=== PATIENT | female | born 1980 | race Caucasian/White ===

== ENCOUNTER 2016-12-03 03:07 | Inpatient (IN) | payer OTHER ==
[2016-12-03 04:23] LABS: Basophils % (Auto) 0.4 % (0.0-1.8); Eosinophils % (Auto) 0.5 % (0.0-4.3); Hematocrit 37.7 % (30.3-42.9); Hemoglobin 12.5 gm/dl (10.1-14.3); Mean Corpuscular HGB Conc 33 % (30-34); Mean Corpuscular Hemoglobin 29 pg (28-32); Mean Corpuscular Volume 89 fl (79-97); Platelet Count 214 K/mm3 (140-440); Red Blood Count 4.25 M/mm3 (3.65-5.03); Red Cell Distribution Width 14.5 % (13.2-15.2); White Blood Count 15.4 K/mm3 (4.5-11.0)
[2016-12-03 04:32] LABS: Anion Gap 16 mmol/L; BUN/Creatinine Ratio 21.25; Blood Urea Nitrogen 17 mg/dL (7-17); Calcium 9.1 mg/dL (8.4-10.2); Carbon Dioxide 28 mmol/L (22-30); Chloride 99.4 mmol/L (98-107); Glucose 92 mg/dL (65-100); Potassium 3.9 mmol/L (3.6-5.0); Sodium 139 mmol/L (137-145)
[2016-12-03] MEDS ORDERED: ZOFRAN IV ONE (11:09)
[2016-12-03] MEDS ORDERED: FIORICET PO ONE (11:09)
[2016-12-03] MEDS ORDERED: MORPHINE IV ONE (11:09)
--- NOTE | 2016-12-03 11:14 | Emergency Department Report ---
HPI - General Chief Complaint: Chest Pain Time Seen by Provider: 12/03/16 10:58 - HPI HPI: Room 25 The patient is a 36-year-old female presenting with a chief complaint of headache and chest pain. The patient states for 1 week she has had bifrontal headaches consistent with her migraines. The patient states pain is intermittent. Patient states BC powder alleviates the pain for approximately 15 -20 minutes but it returns. Patient denies any recent preceding trauma or fever. The patient has a history of seizures and states 2 days ago she had a seizure and afterwards she developed substernal chest pain. The patient describes chest pain as sharp, tight and pressure like in nature. The patient admits to shortness of breath, nausea/vomiting and diaphoresis with her chest pain. The patient currently gives her chest pain a score of 2/10 and her headache a score of 10/10. Patient states she has never had a stress test or cardiac catheterization Location: Head, chest Duration: [see above] Quality: Pain Severity: [see above] Modifying factors: [see above] Context: [see above] Mode of transportation: [not driving] ED Past Medical Hx - Past Medical History Previous Medical History?: Yes Hx Seizures: Yes Additional medical history: Fibromyalgia. Raynauds - Surgical History Past Surgical History?: Yes Additional Surgical History: C section x2. tubal ligation - Family History Family history: no significant - Social History Smoking Status: Never Smoker Substance Use Type: None (denies illicit drug use) - Medications Home Medications: Home Medications Medication Instructions Recorded Confirmed Last Taken Type Dilantin 300 mg PO HS 03/29/16 03/29/16 03/28/16 History Keppra TAB 500 mg PO BID 03/29/16 03/29/16 03/28/16 History ED Review of Systems ROS: Stated complaint: CHEST PAIN/EMESIS Other details as noted in HPI Comment: All other systems reviewed and negative Constitutional: diaphoresis. denies: fever Eyes: denies: eye pain, eye discharge, vision change ENT: denies: ear pain, throat pain Respiratory: shortness of breath Cardiovascular: chest pain Endocrine: no symptoms reported Gastrointestinal: nausea, vomiting, diarrhea Genitourinary: denies: urgency, dysuria, discharge Musculoskeletal: denies: back pain, joint swelling, arthralgia Skin: denies: rash, lesions Neurological: headache Psychiatric: denies: anxiety, depression Hematological/Lymphatic: denies: easy bleeding, easy bruising Physical Exam - Physical Exam Vital Signs: Vital Signs 12/03/16 03:17 Temperature 98.8 F Pulse Rate 80 Respiratory 18 Rate Blood Pressure 152/95 O2 Sat by Pulse 100 Oximetry Physical Exam: GENERAL: The patient is well-developed well-nourished female lying on stretcher not appearing to be in acute distress. [] HEENT: Normocephalic. Atraumatic. Extraocular motions are intact. Patient has moist mucous membranes. NECK: Supple. No meningitic signs are noted. Trachea midline CHEST/LUNGS: Clear to auscultation. There is no respiratory distress noted. HEART/CARDIOVASCULAR: Regular. There is no tachycardia. There is no gallop rub or murmur. ABDOMEN: Abdomen is soft, nontender. Patient has normal bowel sounds. There is no abdominal distention. SKIN: There is no rash. There is no edema. There is no diaphoresis. NEURO: The patient is awake, alert, and oriented. The patient is cooperative. The patient has no focal neurologic deficits. The patient has normal speech. Cranial nerves II through XII grossly intact, no drift MUSCULOSKELETAL: There is no evidence of acute injury. ED Course Vital Signs 12/03/16 03:17 Temperature 98.8 F Pulse Rate 80 Respiratory 18 Rate Blood Pressure 152/95 O2 Sat by Pulse 100 Oximetry ED Medical Decision Making - Lab Data Result diagrams: 12/03/16 04:00 12/03/16 04:00 Laboratory Tests 12/03/16 12/03/16 12/03/16 04:00 04:00 06:36 WBC 15.4 H RBC 4.25 Hgb 12.5 Hct 37.7 MCV 89 MCH 29 MCHC 33 RDW 14.5 Plt Count 214 Lymph % (Auto) 16.6 Calloway % (Auto) 7.3 Eos % (Auto) 0.5 Baso % (Auto) 0.4 Lymph # 2.6 Calloway # 1.1 H Eos # 0.1 Baso # 0.1 Seg Neutrophils % 75.2 H Seg Neutrophils # 11.6 H Sodium 139 Potassium 3.9 Chloride 99.4 Carbon Dioxide 28 Anion Gap 16 BUN 17 Creatinine 0.8 Estimated GFR > 60 BUN/Creatinine Ratio 21.25 Glucose 92 Calcium 9.1 Troponin T < 0.010 < 0.010 Urine HCG, Qual Phenytoin 12/03/16 12/03/16 12/03/16 09:22 11:56 Unknown WBC RBC Hgb Hct MCV MCH MCHC RDW Plt Count Lymph % (Auto) Calloway % (Auto) Eos % (Auto) Baso % (Auto) Lymph # Calloway # Eos # Baso # Seg Neutrophils % Seg Neutrophils # Sodium Potassium Chloride Carbon Dioxide Anion Gap BUN Creatinine Estimated GFR BUN/Creatinine Ratio Glucose Calcium Troponin T < 0.010 Urine HCG, Qual Negative Phenytoin 0.8 L - EKG Data -: EKG Interpreted by Me EKG shows normal: sinus rhythm Rate: normal - EKG Data When compared to previous EKG there are: previous EKG unavailable Interpretation: other (no ischemic changes seen) - Radiology Data Radiology results: report reviewed (CT head), image reviewed (CT head, chest x- ray) interpreted by me: Chest x-ray-no focal infiltrates, no pneumothorax CT head (read by radiologist)-cranial CT scan within normal limits. - Differential Diagnosis ACS, GERD, pericarditis, migraines, ICH Critical care attestation.: If time is entered above; I have spent that time in minutes in the direct care of this critically ill patient, excluding procedure time. ED Disposition Clinical Impression: Chest pain, Headache Disposition: OP ADMITTED IP TO THIS HOSP Is pt being admited?: Yes Does the pt Need Aspirin: Yes Condition: Fair Instructions: Chest Pain (ED) Referrals: PRIMARY CARE, [Primary Care Provider] - 3-5 Days Time of Disposition: 12:58 (hospitalist paged)
--- NOTE | 2016-12-03 12:07 | XRay Report ---
AP CHEST: HISTORY: chest pain AP view of the chest demonstrates a normal mediastinal and cardiac contour with clear lungs and normal bony and soft tissue structures. IMPRESSION: Unremarkable AP chest.
[2016-12-03] MEDS ORDERED: MORPHINE ONE (12:23)
--- NOTE | 2016-12-03 12:46 | Cat Scan Report ---
CT HEAD WITHOUT CONTRAST: HISTORY: Headache, nausea and vomiting. Serial contiguous axial images were obtained through the cranium. Intravenous contrast material was not administered. The ventricles are normal in size and appearance. There is no mass effect or midline shift. No areas of abnormally increased or decreased attenuation are seen. No mass lesion is seen. The mastoid air cells and visualized portions of the sinuses are normal. IMPRESSION: Cranial CT scan within normal limits.
[2016-12-03] MEDS ORDERED: NITRO-BID 2% TP ONE ×2 (12:58→14:37)
[2016-12-03] MEDS ORDERED: ASPIRIN PO ONE (12:58)
--- NOTE | 2016-12-03 13:47 | Admit Criteria Form ---
Admission Criteria Documentation: CARDIOLOGY GRG Clinical Indications for Admission to Inpatient Care ( Place 'X' for any and all applicable criteria): Hospital admission is needed for appropriate care of the patient because of ANY ONE of the following (1): [ ] I. Hemodynamic instability as indicated by ALL of the following (1)(2)(3) (4)(5) [ ]a) Vital signs or other findings not as expected for chronic patient condition or baseline [ ]b) Instability indicated by ANY ONE of the following: [ ]i) Hypotension [ ]ii) Symptomatic Tachycardia unresponsive to treatment ( e.g., analgesia, fluids, sedation as indicated) [ ]iii) Inadequate perfusion indicated by ANY ONE of the following: [ ] 1) Lactic acidosis (> 2 mmol/L) [ ] 2) New abnormal capillary refill (> 3 seconds) [ ] 3) Reduced urine output [ ] 4) New altered mental status [ ]iv) Orthostatic vital sign changes unresponsive to treatment (e.g., fluids) [ ]v) IV inotropic or vasopressor medication required to maintain adequate blood pressure or perfusion [ ] II. Severe heart failure as indicated by ANY ONE of the following(17)(18) [ ]a) Respiratory distress [ ]b) Hypotension [ ]c) Anasarca (refractory to outpatient therapy) [ ]d) Cardiac arrhythmias of immediate concern [ ]e) Myocardial ischemia [ ] III. Cardiac arrhythmias or findings of immediate concern indicated by ANY ONE of the following (19)(20): [ ] a) Heart rhythms that are inherently dangerous or unstable indicated by ANY ONE of the following (21)(22)(23): [ ] i) Resuscitated ventricular fibrillation or cardiac arrest [ ] ii) Ventricular escape rhythm [ ] iii) Sustained ventricular tachycardia (30 seconds or more of ventricular rhythm at greater than 100 beats per minute) [ ] iv) Nonsustained ventricular tachycardia and ANY ONE of the following: [ ] 1) Suspected cardiac ischemia as cause or consequence of ventricular tachycardia [ ] 2) In setting of acute myocarditis [ ] b) Unstable cardiac conduction defects indicated by ANY ONE of the following(23)(24)(25) [ ] i) Type II second-degree atrioventricular block [ ]ii) Third-degree atrioventricular block [ ]iii) New-onset left bundle branch block with suspected myocardial ischemia [ ]c) Any heart rhythm and ANY ONE of the following (21)(22)(26)(27) (28) [ ] i) Continuous long-term ECG monitoring needed (e.g., initiation of drug requiring monitoring for more than 24 hours) [ ] ii) Patient has automatic implanted cardioverter defibrillator that is repeatedly firing, malfunctioning, or in need of immediate adjustment of settings beyond the scope of ambulatory or observation care [ ]d) Heart rhythms of concern due to ANY ONE of the following: [ ] i) Hypotension [ ] ii) Respiratory distress [ ] iii) Association with other significant symptoms (e.g., bradycardia with syncope or ongoing dizziness, supraventricular tachycardia with chest pain (14)(15)(17) [ ] IV. Monitoring for cardiac contusion beyond the scope of observation care needed [A](30)(31)(32) [ ] V. Surgical or device complication (e.g., valve replacement complication , pacemaker dysfunction) (35)(41)(44)(45)(46) [ ] . Inpatient palliative care needed. [B](49) Also use Inpatient Palliative Care Criteria [ ] VII. Nonbacterial thrombotic (marantic) endocarditis (36)(43)(47)(48) [X] VIII. Cardiology condition, symptom, or finding for which emergency and observation care has failed or are not considered appropriate. [ ] IX. Acute valvular disease requiring inpatient as indicated by ANY ONE of the following (41) [ ]a) Acute valvular regurgitation (42) [ ]b) Noninfectious valvulitis (43) [ ]c) Obstructive valve thrombosis [ ]d) Paravalvular leak [ ]e) Other significant valvular disorder remaining after emergency or observation level of care (as appropriate) [ ]X. Pericardial disease requiring inpatient treatment as indicated by ANY ONE of the following (33)(34)(35)(36)(37) [ ]a) Suspected tamponade (38)(39)(40) [ ]b) Hemopericardium [ ]c) Other significant pericardial disorder remaining after emergency or observation level of care (as appropriate) [ ] XI. Cardiac ischemia beyond scope of emergency and observation care. [ ] XII. Hypertension requiring inpatient treatment as indicated by ANY ONE of the following (6)(7)(8) [ ]a) SBP greater than 220 mm Hg or DBP greater than 120 mmHg despite treatment [ ]b) SBP greater than 140 mm Hg or DBP greater than 100 mm Hg with evidence of acute end organ damage as indicated by ANY ONE of the following [ ] i) Altered mental status [ ] ii) Acute renal failure as indicated by new onset of ANY ONE of the following (9)(10)(11)(12)(13) [ ]1) 3-fold rise in serum creatinine from baseline [ ]2) Serum creatinine greater than 4 mg/dL ( 354 micromoles/L) with acute rise greater than 0.5 mg/dL (44.2 micromoles/L) [ ]3) Reduction of more than 75% in estimated glomerular filtration rate from baseline [ ]4) Estimated glomerular filtration rate less than 35 mL/min/1.73m2 (0.59 mL/sec/1.73m2) in child up to 18 years of age [ ]5) Cessation of urine output indicated by ALL of the following [ ]A. Adequate volume status [ ]B. Inadequate urine output as indicated by ANY ONE of the following [ ]a. Urine output less than 0.3 mL/kg/hr for 24 hours [ ]b. Anuria (urine output less than 0.1 mL/kg/hr) for 12 hours [ ] iii) Aortic dissection [ ] iv) Myocardial Ischemia [ ] v) Left ventricular heart failure [ ]vi) Retinal Hemorrhage [ ]vii) Other significant finding [ ]c) Hypertension in child requiring inpatient treatment as indicated by ALL of the following(14)(15)(16) [ ] i) Outpatient treatment not effective, not available, or not appropriate [ ]ii) SBP or DBP greater than 95th percentile for age [ ]iii) Evidence of acute end organ damage as indicated by ANY ONE of the following [ ]1) Altered mental status [ ]2) Acute renal failure as indicated by new onset of ANY ONE of the following(9)(10)(11)(12)(13) [ ]A. 3-fold rise in serum creatinine from baseline [ ]B. Serum creatinine greater than 4 mg/dL (354 micromoles/L) with acute rise greater than 0.5 mg/dL (44.2 micromoles/L) [ ]C. Reduction of more than 75% in estimated glomerular filtration rate from baseline [ ]D. Estimated glomerular filtration rate less than 35 mL/min/1.73m2 (0.59 mL/sec/1.73m2) in child up to 18 years of age [ ]E. Cessation of urine output indicated by ALL of the following [ ]a. Adequate volume status [ ]b. Inadequate urine output as indicated by ANY ONE of the following [ ]i) Urine output less than 0.3 mL/kg/hr for 24 hours [ ]ii) Anuria ( urine output less than 0.1 mL/kg/hr) for 12 hours [ ]3) Severe headache [ ]4) Visual disturbance [ ]5) Retinal hemorrhage [ ]6) Other significant finding [ ]XIII. Complications of transplanted heart indicated by ANY ONE of the following(61): [ ]a) Acute graft rejection requiring inpatient management (eg, intravenous immunosuppression)(62)(63) [ ]b) Acute graft heart failure indicated by ANY ONE of the following(64): [ ]i) Hemodynamic instability [ ]ii) Cardiac arrhythmias of immediate concern [ ]iii) Pulmonary edema that is very severe (eg, mechanical ventilation needed, imminent or likely, need for 100% oxygen to keep oxygen saturation above 90%) [ ]iv) Pulmonary edema that is persistent as indicated by ALL of the following: [ ]1) New need for oxygen therapy to keep oxygen saturation above 90% (or increased FiO2 need from baseline) [ ]2) Has not improved sufficiently with emergency department or observation care IV diuretics or other heart failure treatments[E] [ ]v) Altered mental status that is severe or persistent [ ]vi) Increased creatinine (new on laboratory test) with reduction of more than 50% in estimated glomerular filtration rate from baseline [ ]vii) Progressively (ongoing) rising creatinine (known from past laboratory test) with reduction of more than 25% in estimated glomerular filtration rate from baseline [ ]viii) Acute renal failure [ ]ix) Acute peripheral ischemia (eg, examination shows pulseless, cool, mottled, or cyanotic extremity) [ ]x) Pulmonary artery catheter monitoring needed [ ]xi) Other sign or symptom of heart failure requiring inpatient treatment (ie, too severe or not responsive to outpatient and observation care treatment) [ ]c) Infection requiring inpatient management (eg, Hemodynamic instability, need for intravenous antimicrobial treatment)(66)(67)(68)(69)(70) [ ]d) Cardiac allograft vasculopathy requiring inpatient management ( eg evidence of cardiac ischemia)(71) [ ]e) Other complication of transplanted heart (eg, stroke, severe pulmonary hypertension, severe valvular dysfunction) requiring inpatient management(72) The original [facility] content created by [facility] has been revised. The portions of the content which have been revised are identified through the use of italic text or in bold, and [facility] has neither reviewed nor approved the modified material. All other unmodified content is copyright [facility]. Please see references footnoted in the original [facility] edition 2016 Admission Criteria Met: Yes
[2016-12-03] MEDS ORDERED: SODIUM CHLORIDE FLUSH SYRINGE 10 ML IV PRN (14:17)
[2016-12-03] MEDS ORDERED: DULCOLAX PR PRN (14:17)
[2016-12-03] MEDS ORDERED: MILK OF MAGNESIA PO PRN (14:17)
[2016-12-03] MEDS ORDERED: TYLENOL PO PRN (14:17)
[2016-12-03] MEDS ORDERED: ZOFRAN IV PRN (14:17)
--- NOTE | 2016-12-03 14:31 | History and Physical Report ---
History of Present Illness Chief complaint: Headache History of present illness: Judith is a 36-year-old with a past medical history of migraine headaches and seizure disorder who presents with 1 week of migraine headaches. She notes that usually she takes either tramadol or Excedrin Migraine and is usually alleviate her symptoms, however in the past week they have not work she states that the headaches come on and they're frontal Flora photophobia and lasts anywhere from 15-20 minutes she gets some risk despite the pain as 7 out of 10 and then the pain comes back. She has had a really terrible week and she had to go to work despite having headaches. She notes that her friend of hers witnessed a seizure 2 days ago while she was in her sleep, she describes it as a friend saw her extremity shaking while she was asleep and was quite concerned. Also she's complaining of substernal chest pain 1 day, it is 2 out of 10 associated with shortness of breath nausea one episode of vomiting and diaphoresis. Past History Past Medical History: other (seizure disorder, fibromyalgia, renal distress disease, migraine headaches) Past Surgical History: Other ( section, tubal ligation) Social history: no significant social history Family history: no significant family history Medications and Allergies Allergies Allergy/AdvReac Type Severity Reaction Status Date / Time latex Allergy Rash Verified 07/05/15 11:06 Home Medications Medication Instructions Recorded Confirmed Last Taken Type Dilantin 300 mg PO HS 03/29/16 03/29/16 03/28/16 History Keppra TAB 500 mg PO BID 03/29/16 03/29/16 03/28/16 History Active Meds: Active Medications Acetaminophen (Tylenol) 650 mg PO Q4H PRN PRN Reason: Pain MILD(1-3)/Fever >100.5/YOUNG Acetaminophen/Butalbital/Caffeine (Fioricet) 2 tab PO Q4H PRN PRN Reason: Headache Amlodipine Besylate (Norvasc) 5 mg PO QDAY SHAWN Aspirin (Ecotrin) 325 mg PO QDAY SHAWN Bisacodyl (Dulcolax) 10 mg VA QDAY PRN PRN Reason: Constipation unrelieved by MOM Magnesium Hydroxide (Milk Of Magnesia) 30 ml PO Q4H PRN PRN Reason: Constipation Ondansetron HCl (Zofran) 4 mg IV Q8H PRN PRN Reason: N/V unrelieved by Reglan Sodium Chloride (Sodium Chloride Flush Syringe 10 Ml) 10 ml IV PRN PRN PRN Reason: LINE FLUSH Review of Systems All systems: negative (as stated in HPI) Exam - Constitutional Vitals: Temp Pulse Resp BP Pulse Ox 98.8 F 80 18 152/95 100 12/03/16 03:17 12/03/16 03:17 12/03/16 03:17 12/03/16 03:17 12/03/16 03:17 General appearance: Present: no acute distress, well-nourished - EENT Eyes: Present: PERRL ENT: hearing intact, clear oral mucosa - Neck Neck: Present: supple, normal ROM - Respiratory Respiratory effort: normal Respiratory: bilateral: CTA - Cardiovascular Heart Sounds: Present: S1 & S2. Absent: rub, click - Extremities Extremities: pulses symmetrical, No edema Peripheral Pulses: within normal limits - Abdominal General gastrointestinal: Present: soft, non-tender, non-distended, normal bowel sounds Female genitourinary: Present: normal - Integumentary Integumentary: Present: clear, warm, dry - Musculoskeletal Musculoskeletal: gait normal, strength equal bilaterally - Psychiatric Psychiatric: appropriate mood/affect, intact judgment & insight - Neurologic Neurologic: CNII-XII intact, moves all extremities Results - Labs CBC & Chem 7: 12/03/16 04:00 12/03/16 04:00 Labs: Laboratory Last Values WBC 15.4 K/mm3 (4.5-11.0) H 12/03/16 04:00 RBC 4.25 M/mm3 (3.65-5.03) 12/03/16 04:00 Hgb 12.5 gm/dl (10.1-14.3) 12/03/16 04:00 Hct 37.7 % (30.3-42.9) 12/03/16 04:00 MCV 89 fl (79-97) 12/03/16 04:00 MCH 29 pg (28-32) 12/03/16 04:00 MCHC 33 % (30-34) 12/03/16 04:00 RDW 14.5 % (13.2-15.2) 12/03/16 04:00 Plt Count 214 K/mm3 (140-440) 12/03/16 04:00 Lymph % (Auto) 16.6 % (13.4-35.0) 12/03/16 04:00 [place] % (Auto) 7.3 % (0.0-7.3) 12/03/16 04:00 Eos % (Auto) 0.5 % (0.0-4.3) 12/03/16 04:00 Baso % (Auto) 0.4 % (0.0-1.8) 12/03/16 04:00 Lymph # 2.6 K/mm3 (1.2-5.4) 12/03/16 04:00 [facility] [place] # 1.1 K/mm3 (0.0-0.8) H 12/03/16 04:00 Eos # 0.1 K/mm3 (0.0-0.4) 12/03/16 04:00 Baso # 0.1 K/mm3 (0.0-0.1) 12/03/16 04:00 Seg Neutrophils % 75.2 % (40.0-70.0) H 12/03/16 04:00 Seg Neutrophils # 11.6 K/mm3 (1.8-7.7) H 12/03/16 04:00 Sodium 139 mmol/L (137-145) 12/03/16 04:00 Potassium 3.9 mmol/L (3.6-5.0) 12/03/16 04:00 Chloride 99.4 mmol/L (98-107) 12/03/16 04:00 Carbon Dioxide 28 mmol/L (22-30) 12/03/16 04:00 Anion Gap 16 mmol/L 12/03/16 04:00 BUN 17 mg/dL (7-17) 12/03/16 04:00 Creatinine 0.8 mg/dL (0.7-1.2) 12/03/16 04:00 Estimated GFR > 60 ml/min 12/03/16 04:00 BUN/Creatinine Ratio 21.25 % 12/03/16 04:00 Glucose 92 mg/dL (65-100) 12/03/16 04:00 Calcium 9.1 mg/dL (8.4-10.2) 12/03/16 04:00 Troponin T < 0.010 ng/mL (0.00-0.029) 12/03/16 09:22 Urine HCG, Qual Negative (Negative) 12/03/16 11:56 Phenytoin 0.8 mg/L (10.0-20.0) L 12/03/16 Unknown - Imaging and Cardiology Chest x-ray: image reviewed (no acute abnormalities) CT Scan - head: image reviewed (no acute abnormalities) Assessment and Plan Assessment and plan: Judith is a 36-year-old woman with a past medical history of seizure disorder fibromyalgia, Raynaud's phenomena and migraine headaches. Who presented one week of uncontrolled migraine, one episode of seizure 2 days ago and chest pain 1 day 1. Uncontrolled migraines We'll put her on Fioricet, MRI brain, neurology consult 2. Uncontrolled seizures Continue home medications, EEG, MRI brain, neurology consult 3. Hypertension Put on a calcium channel bogdan as this also help alleviate her renal disease 4. Chest pain Serial troponins, stress test in the morning.
[2016-12-03] MEDS ORDERED: ASPIRIN ONE (14:37)
[2016-12-03] MEDS ORDERED: NORVASC ONE (14:38)
[2016-12-03] MEDS: NORVASC PO SCH (14:48)
--- NOTE | 2016-12-03 16:50 | Magnetic Resonance Report ---
MRI BRAIN WITHOUT CONTRAST INDICATION: Seizure, headache. COMPARISON: Head CT from earlier today. FINDINGS: Noncontrast multiplanar and multisequence MRI of the brain demonstrates normal ventricles and sulci without acute infarct, hemorrhage, mass effect or midline shift. No abnormal extra-axial masses or fluid collections. Normal major intracranial vascular flow voids. Normal posterior fossa structures with symmetric seventh and eighth nerve complexes. Symmetric, grossly unremarkable eye globes. Mild nasal septal deviation. Slight bilateral ethmoid and maxillary sinusitis. Clear remainder imaged paranasal sinuses and mastoid air cells. Slightly low-lying cerebellar tonsils extending for approximately 4-5 mm below the foramen magnum. Normal remainder midline appearance. 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 Please correlate. Thank you for the opportunity to participate in this patient's care.
[2016-12-03] MEDS: FIORICET PO PRN (17:42)
[2016-12-03 17:54] LABS: Creatine Kinase MB 1.1 ng/mL (0.0-4.0)
[2016-12-03] MEDS ORDERED: DILANTIN 300 MG PO SCH (22:00)
[2016-12-03] MEDS ORDERED: KEPPRA 500 MG PO SCH (22:00)
[2016-12-03] MEDS ORDERED: PERCOCET 5/325 PO ONE (22:35)
[2016-12-03] MEDS: KEPPRA PO SCH (22:38)
[2016-12-03] MEDS: DILANTIN PO SCH (22:38)
[2016-12-04] MEDS: FIORICET PO PRN (06:52)
[2016-12-04] MEDS: NITRO-BID 2% TP SCH ×2 (07:25→15:10)
[2016-12-04] MEDS: NORVASC PO SCH (10:09)
[2016-12-04] MEDS: ECOTRIN PO SCH (10:09)
[2016-12-04] MEDS: KEPPRA PO SCH ×2 (10:10→21:13)
[2016-12-04] MEDS ORDERED: MAGNESIUM SULFATE IV ONE (10:45)
--- NOTE | 2016-12-04 10:51 | Consultation ---
History of Present Illness Consult date: 12/04/16 Requesting physician: BETTY ALVARADO Reason for Consult: headache/seizure Chief complaint: headache, seizure History of present illness: 36 YO F p/w 10 days of holocranial YOUNG typical to prior migraines. Sx began on . Pain is worsened by activity and sounds/light and relieved by rest. There are no clear temporal factors. Severity is such to limit her ability to function comfortably. She reported breakthrough seizure during sleep on 12/02. She reported AED compliance. Past History Past Medical History: other (seizure disorder, fibromyalgia, renal distress disease, migraine headaches) Past Surgical History: Other ( section, tubal ligation) Social history: no significant social history, single, Lives alone, smoking. denies: alcohol abuse, prescription drug abuse, IV drug use Family history: no significant family history Medications and Allergies Allergies Allergy/AdvReac Type Severity Reaction Status Date / Time latex Allergy Rash Verified 07/05/15 11:06 Home Medications Medication Instructions Recorded Confirmed Last Taken Type Dilantin 300 mg PO HS 03/29/16 12/03/16 03/28/16 History Keppra TAB 500 mg PO BID 03/29/16 12/03/16 03/28/16 History Active Meds: Active Medications Acetaminophen (Tylenol) 650 mg PO Q4H PRN PRN Reason: Pain MILD(1-3)/Fever >100.5/YOUNG Acetaminophen/Butalbital/Caffeine (Fioricet) 2 tab PO Q4H PRN PRN Reason: Headache Last Admin: 12/04/16 06:52 Dose: 2 tab Amlodipine Besylate (Norvasc) 5 mg PO QDAY [facility] Last Admin: 12/04/16 10:09 Dose: 5 mg Aspirin (Ecotrin) 325 mg PO QDAY [facility] Last Admin: 12/04/16 10:09 Dose: 325 mg Bisacodyl (Dulcolax) 10 mg AR QDAY PRN PRN Reason: Constipation unrelieved by MOM Dexamethasone (Decadron) 4 mg IV Q12HR [facility] Stop: 12/06/16 22:01 Valproate Sodium 500 mg/ (Sodium Chloride) 105 mls @ 100 mls/hr IV Q8HR [facility] Stop: 12/05/16 07:02 Levetiracetam (Keppra) 500 mg PO BID [facility] Last Admin: 12/04/16 10:10 Dose: 500 mg Magnesium Hydroxide (Milk Of Magnesia) 30 ml PO Q4H PRN PRN Reason: Constipation Magnesium Sulfate (Magnesium Sulfate) 1 gm IV ONCE ONE Stop: 12/04/16 10:46 Nitroglycerin (Nitro-Bid 2%) 0.5 inch TP BIDNTG [facility] PRN Reason: Protocol Last Admin: 12/04/16 07:25 Dose: 0.5 inch Ondansetron HCl (Zofran) 4 mg IV Q8H PRN PRN Reason: N/V unrelieved by Reglan Phenytoin (Dilantin) 300 mg PO QHS [facility] Last Admin: 12/03/16 22:38 Dose: 300 mg Sodium Chloride (Sodium Chloride Flush Syringe 10 Ml) 10 ml IV PRN PRN PRN Reason: LINE FLUSH Review of Systems All systems: negative Constitutional: fatigue, chronic headaches, chronic pain Neurological: weakness, seizures, headaches, migraines, convulsions Physical Examination - Vital Signs Vital Signs: Vital Signs Temp Pulse Resp BP Pulse Ox 98.8 F 80 18 152/95 100 12/03/16 03:17 12/03/16 03:17 12/03/16 03:17 12/03/16 03:17 12/03/16 03:17 - Constitutional General appearance: uncomfortable, chronically ill - EENT EENT: Present: ATNC, PERRL, mucous membranes moist, hearing intact, vision intact - Respiratory Respiratory: Present: chest non-tender, normal breath sounds, no respiratory distress - Cardiovascular Cardiovascular: Present: regular rate Extremities: Present: no peripheral edema bilatateraly, no clubbing, cyanosis, no inflammation, no ischemia or petechiae - Gastrointestinal Gastrointestinal: Present: normoactive bowel sounds, non-distended - Integumentary Integumentary: Present: normal - Neurologic Cranial nerve examination: PERRL, EOMI, VFF, V1/V2/V3 grossly intact, face symmetric, tongue midline, intact, intact shoulder shrug, intact cough reflex, Intact Vestibulo-ocular r, intact corneal reflex, normal palatal elevation Speech examination: intact Sensorimotor examination: intact Detailed motor examination: full strength in all mary Motor examination - right side: 5/5: biceps, triceps, wrist flexion, wrist extension, associate chief nurse, hip flexors, knee extensors, dorsiflexion, toe extension (EHL) , plantarflexion Motor examination - left side: 02/13: biceps, triceps, wrist flexion, wrist extension, associate chief nurse, hip flexors, knee extensors, dorsiflexion, toe extension (EHL) , plantarflexion Detailed sensory examination: intact, light touch, temperature Reflex and gait examination: intact Reflexes: 2+: ankle, bicep, knee, tricep - Musculoskeletal Musculoskeletal: Present: no fluid collection, no pain, normal range of motion - Psychiatric Psychiatric: Present: mood/affect appropriate, cooperative Results - Laboratory Findings CBC and BMP: 12/03/16 04:00 12/03/16 04:00 Abnormal Lab Findings: Abnormal Labs 12/03/16 12/03/16 14:33 Unknown LDL Cholesterol Direct 39 L Phenytoin 0.8 L Assessment and Plan 36 YO F Hx fibromyalgia and migraine p/w 2 weeks of status migraine refractory to Excedrin and seizure disorder on LEV 500mg BID and PHT 300mg QHS w/ breakthrough event 12/02 overnight. She reports AED compliance by PHT level 0.8 would suggest otherwise. Neuro exam intact @ baseline. MRI Brain ? Chiari I. Plan and Recommendations: 1. Neuro checks w/ Sz precautions 2. Brain imaging: no further indicated 3. [facility] Protocol-Decadron 10mg IV x 1 and cont 4mg IV BID x 6 doses, VPA 500mg IV Q8hrs x 3 doses, Magnesium 1mg IV Q24hrs x 3 doses, 4. Analgesia PRN: Toradol 15-30mg IV Q4-6hrs prn and Fioricet 1-2 tabs Q4-6hrs prn 5. Cont home AED doses
[2016-12-04] MEDS: DECADRON IV SCH ×2 (11:56→21:30)
[2016-12-04] MEDS ORDERED: MAGNESIUM SULFATE 1 GM in NACL 0.9% 50 ML IV ONE ×2 (12:00→16:00)
[2016-12-04] MEDS: DepaCON 500 MG in NACL 0.9% 100 ML IV SCH ×2 (15:17→21:15)
[2016-12-04] MEDS ORDERED: FLUARIX QUAD 2016-2017(36 MOS+) IM ONE (15:24)
--- NOTE | 2016-12-04 18:06 | Progress Note ---
Assessment and Plan Assessment and Plan 1. Migraine headache: CT of head was normal, MRI showed sinusitis and borderline demetra 1 malformation without acute intracranial MRI abnormality. Presently on Fioricet, Neurology following. 2. Seizure do: Continue with antiepileptic meds. 3. HTN: Optimize control with BP meds. 4. Chest pain: Will follow up on stress test. Subjective Date of service: 12/04/16 Principal diagnosis: Migraine headache, Seizure Interval history: No overnight events Objective - Constitutional Vitals: Vital Signs - 12hr 12/04/16 12/04/16 12/04/16 07:25 08:00 09:14 Temperature 97.7 F Pulse Rate 60 Pulse Rate [ 74 Right Radial] Respiratory 20 Rate Blood Pressure 101/59 Blood Pressure 102/64 [Left Arm] Blood Pressure [Right Arm] O2 Sat by Pulse 99 96 Oximetry 12/04/16 12/04/16 12/04/16 10:09 11:07 12:25 Temperature 98.0 F Pulse Rate 10 L Pulse Rate [ 64 Right Radial] Respiratory 20 Rate Blood Pressure Blood Pressure [Left Arm] Blood Pressure 99/52 [Right Arm] O2 Sat by Pulse 95 97 Oximetry 12/04/16 15:10 Temperature Pulse Rate 84 Pulse Rate [ Right Radial] Respiratory Rate Blood Pressure Blood Pressure [Left Arm] Blood Pressure [Right Arm] O2 Sat by Pulse Oximetry General appearance: Present: no acute distress, well-nourished - EENT Eyes: PERRL, EOM intact ENT: hearing intact, clear oral mucosa Ears: bilateral: normal - Neck Neck: supple, normal ROM - Respiratory Respiratory effort: normal Respiratory: bilateral: CTA - Breasts Breasts: normal - Cardiovascular Rhythm: regular Heart Sounds: Present: S1 & S2. Absent: gallop, rub Extremities: pulses intact, No edema, normal color, Full ROM - Gastrointestinal General gastrointestinal: Present: soft, non-tender, non-distended, normal bowel sounds - Genitourinary Female genitourinary: normal - Integumentary Integumentary: clear, warm, dry - Musculoskeletal Musculoskeletal: 1, strength equal bilaterally - Neurologic Neurologic: moves all extremities - Psychiatric Psychiatric: memory intact, appropriate mood/affect, intact judgment & insight - Labs CBC & Chem 7: 12/03/16 04:00 12/03/16 04:00
[2016-12-04] MEDS: NORCO 5/325 PO PRN (18:49)
[2016-12-04] MEDS ORDERED: MORPHINE IV PRN (19:13)
[2016-12-04] MEDS: DILANTIN PO SCH (21:13)
[2016-12-05] MEDS: DepaCON 500 MG in NACL 0.9% 100 ML IV SCH (05:54)
[2016-12-05] MEDS: NITRO-BID 2% TP SCH ×2 (06:01→13:14)
[2016-12-05] MEDS ORDERED: LEXISCAN IV ONE ×2 (08:48→08:50)
[2016-12-05] MEDS: ECOTRIN PO SCH (10:15)
--- NOTE | 2016-12-05 11:33 | Progress Note ---
Assessment and Plan 36 YO F Hx fibromyalgia and migraine p/w 2 weeks of status migraine refractory to Excedrin and seizure disorder on LEV 500mg BID and PHT 300mg QHS w/ breakthrough event 12/02 overnight. She reports AED compliance by PHT level 0.8 would suggest otherwise. Neuro exam intact @ baseline. MRI Brain ? Chiari I. YOUNG improving 12/05. Plan and Recommendations: 1. Neuro checks w/ Sz precautions 2. Brain imaging: no further indicated 3. [facility] Protocol-Decadron 10mg IV x 1 and cont 4mg IV BID x 6 doses, VPA 500mg IV Q8hrs x 3 doses, Magnesium 1mg IV Q24hrs x 3 doses, 4. Analgesia PRN: Toradol 15-30mg IV Q4-6hrs prn and Fioricet 1-2 tabs Q4-6hrs prn 5. Cont home AED doses 6. We can revisit as needed. If pt continues to improve during hospitalization, she can likely be D/C over weekend w/ outpt follow up. Subjective Date of service: 12/05/16 Principal diagnosis: Migraine headache, Seizure Interval history: YOUNG improving Objective - Vital Sign Vital Signs - 12hr 12/05/16 12/05/16 12/05/16 00:35 03:00 05:20 Temperature 98.4 F 97.9 F Pulse Rate 82 Pulse Rate [ 88 88 Left Dorsalis Pedis] Respiratory 20 20 Rate Blood Pressure 109/66 113/59 [Right Arm] O2 Sat by Pulse 99 97 Oximetry - General Apperance Constitutional: comfortable - EENT EENT: ATNC, PERRL, mucous membranes moist, hearing intact, vision intact - Respiratory Respiratory: chest non-tender, normal breath sounds, no respiratory distress - Cardiovascular Cardiovascular: regular rate Extremities: no peripheral edema bilat, no clubbing, cyanosis, no inflammation, no ischemia or petechiae - Gastrointestinal Gastrointestinal: normoactive bowel sounds, non-distended - Integumentary Integumentary: normal - Neurologic Cranial nerve examination: PERRL, EOMI, VFF, V1/V2/V3 grossly intact, face symmetric, tongue midline, intact, intact shoulder shrug, intact cough reflex, Intact Vestibulo-ocular r, intact corneal reflex, normal palatal elevation Speech examination: intact Detailed motor examination: full strength in all mary Motor examination - right side: 5/5: biceps, triceps, wrist flexion, wrist extension, patient assessment coordinator, hip flexors, knee extensors, dorsiflexion, toe extension (EHL) , plantarflexion Motor examination - left side: 02/13: biceps, triceps, wrist flexion, wrist extension, patient assessment coordinator, hip flexors, knee extensors, dorsiflexion, toe extension (EHL) , plantarflexion Detailed sensory examination: intact, light touch Reflex and gait examination: intact Reflexes: 2+: ankle, bicep, knee, tricep - Musculoskeletal Musculoskeletal: no fluid collection, no pain, normal range of motion - Psychiatric Psychiatric: mood/affect appropriate - Laboratory Findings CBC and BMP: 12/03/16 04:00 12/03/16 04:00 Abnormal Lab Findings: Abnormal Labs 12/03/16 12/03/16 14:33 Unknown LDL Cholesterol Direct 39 L Phenytoin 0.8 L
[2016-12-05] MEDS: NORVASC PO SCH (13:14)
[2016-12-05] MEDS: KEPPRA PO SCH ×2 (13:14→22:32)
[2016-12-05] MEDS: DECADRON IV SCH ×2 (13:15→22:34)
--- NOTE | 2016-12-05 15:46 | Progress Note ---
Assessment and Plan Assessment and plan: 36 YO F Hx fibromyalgia and migraine p/w 2 weeks of status migraine refractory to Excedrin and seizure disorder on LEV 500mg BID and PHT 300mg QHS w/ breakthrough event 12/02 overnight. She reports AED compliance by PHT level 0.8 would suggest otherwise. Neuro exam intact @ baseline. MRI Brain ? Chiari I. YOUNG improving 12/05. 1. Migraine headache: CT of head was normal, MRI showed sinusitis and borderline demetra 1 malformation without acute intracranial MRI abnormality. Presently on Fioricet, Neurology following. Cognitive neurologist will continue on Decadron on the [facility] protocol-Decadron 10mg IV x 1 and cont 4mg IV BID x 6 doses, VPA 500mg IV Q8hrs x 3 doses, Magnesium 1mg IV Q24hrs x 3 doses, 2. Seizure do: Continue with antiepileptic meds. 3. HTN: Optimize control with BP meds. 4. Chest pain: Stress test done this morning and was negative Pain is reproducible. Likely musculoskeletal 5. DVT and GI prophylaxis 6. Plan of care discussed with the patient detail and anticipate discharge in a.m. History Interval history: Patient seen and examined this morning in no acute distress, still drowsy but also complaining of pain. Denies any chest pain, nausea, vomiting, diarrhea No fever noted blood pressure controlled No adverse events reported to me by nursing staff Hospitalist Physical - Physical exam Narrative exam: VITAL SIGNS: Reviewed. GENERAL: The patient appeared well nourished and normally developed. Vital signs as documented. HEAD: No signs of head trauma. EYES: Pupils are equal. Extraocular motions intact. EARS: Hearing grossly intact. MOUTH: Oropharynx is normal. NECK: No adenopathy, no JVD. CHEST: Chest with clear breath sounds bilaterally. No wheezes, rales, or rhonchi. CARDIAC: Regular rate and rhythm. S1 and S2, without murmurs, gallops, or rubs. VASCULAR: No Edema. Peripheral pulses normal and equal in all extremities. ABDOMEN: Soft, without detectable tenderness. No sign of distention. No rebound or guarding, and no masses palpated. Bowel Sounds normal. MUSCULOSKELETAL: Good range of motion of all major joints. Extremities without clubbing, cyanosis or edema. NEUROLOGIC EXAM: Alert and oriented x 3. No focal sensory or strength deficits. Speech normal. Follows commands. PSYCHIATRIC: Mood normal. SKIN: No rash or lesions. - Constitutional Vitals: Temp Pulse Resp BP Pulse Ox 97.4 F L 75 18 111/67 100 12/05/16 12:00 12/05/16 13:14 12/05/16 12:00 12/05/16 13:14 12/05/16 12:00 General appearance: Present: no acute distress, well-nourished Results - Labs CBC & Chem 7: 12/03/16 04:00 12/03/16 04:00 Labs: Laboratory Last Values WBC 15.4 K/mm3 (4.5-11.0) H 12/03/16 04:00 RBC 4.25 M/mm3 (3.65-5.03) 12/03/16 04:00 Hgb 12.5 gm/dl (10.1-14.3) 12/03/16 04:00 Hct 37.7 % (30.3-42.9) 12/03/16 04:00 MCV 89 fl (79-97) 12/03/16 04:00 MCH 29 pg (28-32) 12/03/16 04:00 MCHC 33 % (30-34) 12/03/16 04:00 RDW 14.5 % (13.2-15.2) 12/03/16 04:00 Plt Count 214 K/mm3 (140-440) 12/03/16 04:00 Lymph % (Auto) 16.6 % (13.4-35.0) 12/03/16 04:00 Turner % (Auto) 7.3 % (0.0-7.3) 12/03/16 04:00 Eos % (Auto) 0.5 % (0.0-4.3) 12/03/16 04:00 Baso % (Auto) 0.4 % (0.0-1.8) 12/03/16 04:00 Lymph # 2.6 K/mm3 (1.2-5.4) 12/03/16 04:00 Turner # 1.1 K/mm3 (0.0-0.8) H 12/03/16 04:00 Eos # 0.1 K/mm3 (0.0-0.4) 12/03/16 04:00 Baso # 0.1 K/mm3 (0.0-0.1) 12/03/16 04:00 Seg Neutrophils % 75.2 % (40.0-70.0) H 12/03/16 04:00 Seg Neutrophils # 11.6 K/mm3 (1.8-7.7) H 12/03/16 04:00 Sodium 139 mmol/L (137-145) 12/03/16 04:00 Potassium 3.9 mmol/L (3.6-5.0) 12/03/16 04:00 Chloride 99.4 mmol/L (98-107) 12/03/16 04:00 Carbon Dioxide 28 mmol/L (22-30) 12/03/16 04:00 Anion Gap 16 mmol/L 12/03/16 04:00 BUN 17 mg/dL (7-17) 12/03/16 04:00 Creatinine 0.8 mg/dL (0.7-1.2) 12/03/16 04:00 Estimated GFR > 60 ml/min 12/03/16 04:00 BUN/Creatinine Ratio 21.25 % 12/03/16 04:00 Glucose 92 mg/dL (65-100) 12/03/16 04:00 Calcium 9.1 mg/dL (8.4-10.2) 12/03/16 04:00 Total Creatine Kinase 72 units/L (30-135) 12/03/16 17:18 CK-MB (CK-2) 1.1 ng/mL (0.0-4.0) 12/03/16 17:18 CK-MB (CK-2) Rel Index 1.5 (0-4) 12/03/16 17:18 Troponin T < 0.010 ng/mL (0.00-0.029) 12/05/16 05:45 Triglycerides 75 mg/dL (2-149) 12/03/16 14:33 Cholesterol 110 mg/dL (50-199) 12/03/16 14:33 LDL Cholesterol Direct 39 mg/dL (50-130) L 12/03/16 14:33 HDL Cholesterol 56 mg/dL (40-59) 12/03/16 14:33 Cholesterol/HDL Ratio 1.96 % 12/03/16 14:33 Urine HCG, Qual Negative (Negative) 12/03/16 11:56 Phenytoin 0.8 mg/L (10.0-20.0) L 12/03/16 Unknown
[2016-12-05] MEDS: FIORICET PO PRN (20:08)
--- NOTE | 2016-12-05 22:23 | Treadmill Report ---
ORDERING PHYSICIAN: Nita Neely MD INDICATION FOR PROCEDURE: Chest pain. FINDINGS: There is no scintigraphic evidence of myocardial ischemia. The left ventricle is normal in size and systolic function. The left ventricular ejection fraction is measured at 68%. Normal wall motion and wall thickening is noted on gated imaging. CONCLUSION: This is a normal perfusion scan. JOB# [id number] FREDY/CHELSEA
[2016-12-05] MEDS: DILANTIN PO SCH (22:32)
[2016-12-05] MEDS: NORCO 5/325 PO PRN (22:33)
[2016-12-06] MEDS: FIORICET PO PRN ×2 (06:45→10:44)
[2016-12-06] MEDS: NITRO-BID 2% TP SCH ×2 (06:46→14:28)
[2016-12-06] MEDS: ECOTRIN PO SCH (10:30)
[2016-12-06] MEDS: NORVASC PO SCH (10:31)
[2016-12-06] MEDS: KEPPRA PO SCH (10:31)
[2016-12-06] MEDS: DECADRON IV SCH (10:31)
--- NOTE | 2016-12-06 16:23 | Discharge Summary ---
Providers - Providers Date of Admission: 12/03/16 13:34 Attending physician: BETTY ALVARADO MD 12/03/16 Consult to Cardiac Rehabilitation [CONS] Routine Reason For Exam: Phase I 12/03/16 14:20 Consult to Physician [CONS] Routine Consulting Provider: RILEY CONWAY Reason For Exam: seizure and migraine Place consult to:: Dr. Conway Notified:: Yohana LIVINGSTON Phone number called:: [phone] Was contact made?: Yes If yes, spoke with:: Voicemail with consult info left for Flavia [place] Time called:: 18:25 Primary care physician: [employer] Hospitalization Condition: Fair Hospital course: 36 YO F Hx fibromyalgia and migraine p/w 2 weeks of status migraine refractory to Excedrin and seizure disorder on LEV 500mg BID and PHT 300mg QHS w/ breakthrough event 12/02 overnight. She reports AED compliance by PHT level 0.8 would suggest otherwise. Neuro exam intact @ baseline. MRI Brain ? Chiari I. YOUNG improving 12/05. 1. Migraine headache: CT of head was normal, MRI showed sinusitis and borderline demetra 1 malformation without acute intracranial MRI abnormality. Presently on Fioricet, Neurology following. Cognitive neurologist will continue on Decadron on the [facility] protocol-Decadron 10mg IV x 1 and cont 4mg IV BID x 6 doses, VPA 500mg IV Q8hrs x 3 doses, Magnesium 1mg IV Q24hrs x 3 doses, 2. Seizure do: Continue with antiepileptic meds. 3. HTN: Optimize control with BP meds. 4. Chest pain: Stress test done this morning and was negative Pain is reproducible. Likely musculoskeletal 5. DVT and GI prophylaxis 6. Plan of care discussed with the patient detail and anticipate discharge in a.m. Disposition: DISCHARGED TO HOME OR SELFCARE Time spent for discharge: 35 minutes Core Measure Documentation - Palliative Care Palliative Care/ Comfort Measures: Not Applicable - Core Measures Any of the following diagnoses?: none Exam - Constitutional Vitals: Temp Pulse Resp BP Pulse Ox 97.3 F L 83 18 126/72 98 12/06/16 12:00 12/06/16 12:00 12/06/16 12:00 12/06/16 12:00 12/06/16 12:00 General appearance: Present: no acute distress, well-nourished - EENT Eyes: Present: PERRL ENT: hearing intact, clear oral mucosa - Neck Neck: Present: supple, normal ROM - Respiratory Respiratory effort: normal Respiratory: bilateral: CTA - Cardiovascular Heart Sounds: Present: S1 & S2. Absent: rub, click - Extremities Extremities: pulses symmetrical, No edema Peripheral Pulses: within normal limits - Abdominal General gastrointestinal: Present: soft, non-tender, non-distended, normal bowel sounds Female genitourinary: Present: normal - Integumentary Integumentary: Present: clear, warm, dry - Musculoskeletal Musculoskeletal: gait normal, strength equal bilaterally - Psychiatric Psychiatric: appropriate mood/affect, intact judgment & insight - Neurologic Neurologic: CNII-XII intact, moves all extremities Plan Follow up with: PRIMARY CARE, [Primary Care Provider] - 3-5 Days Forms: Work/School Release Form Prescriptions: amLODIPine [Norvasc] 5 mg PO QDAY #30 tablet Butalb/Acetamin/Caff 50-325-40 [Fioricet] 2 tab PO Q4H PRN #60 tablet PRN Reason: Headache Dexamethasone [Decadron] 2 mg PO BID #10 tablet HYDROcodone/APAP 5-325 [[place] 5-325 mg TAB] 1 each PO Q6H PRN #30 tablet PRN Reason: Pain, Moderate (4-6)
[2016-12-06 17:43] VITALS: BP 113/69
== END 2016-12-06 19:37 | disposition home or self-care (01) | DRG 101 ==
LOC: ED 03:07 → 4A 13:34
PROVIDERS: ADMIT Internal Medicine; ATTEND Internal Medicine
DX: G40.909 Epilepsy, unspecified, not intractable, without status epilepticus (principal); G43.919 Migraine, unspecified, intractable, without status migrainosus; I10 Essential (primary) hypertension; G44.89 Other headache syndrome; R07.9 Chest pain, unspecified; Z98.51 Tubal ligation status; Z91.040 Latex allergy status
CPT/HCPCS: 36415; 70450; 70551; 71010; 78452; 80048; 80061; 80185; 81025; 82550; 82553; 84484; 85025; 90686; 93005; 93010; 93017; 94760; 96374; 96375; A9502; J1100; J2270; J2405; J2785; J3475

== ENCOUNTER 2017-01-10 14:30 | Emergency (ER) | payer SELFPAY ==
[2017-01-10 16:00] LABS: Anion Gap 14 mmol/L; BUN/Creatinine Ratio 27.14; Blood Urea Nitrogen 19 mg/dL (7-17); Calcium 8.6 mg/dL (8.4-10.2); Carbon Dioxide 23 mmol/L (22-30); Chloride 106.5 mmol/L (98-107); Eosinophils % (Auto) 1.3 % (0.0-4.3); Glucose 75 mg/dL (65-100); Hematocrit 39.3 % (30.3-42.9); Hemoglobin 13.3 gm/dl (10.1-14.3); Mean Corpuscular HGB Conc 34 % (30-34); Mean Corpuscular Hemoglobin 30 pg (28-32); Mean Corpuscular Volume 88 fl (79-97); Platelet Count 219 K/mm3 (140-440); Potassium 3.8 mmol/L (3.6-5.0); Red Blood Count 4.46 M/mm3 (3.65-5.03); Sodium 140 mmol/L (137-145); White Blood Count 7.2 K/mm3 (4.5-11.0)
[2017-01-10] MEDS ORDERED: TORADOL IV ONE (20:34)
[2017-01-10] MEDS ORDERED: NACL 0.9% 1000 ML 1,000 ML IV ONE (20:34)
[2017-01-10] MEDS ORDERED: MORPHINE IV ONE (20:34)
--- NOTE | 2017-01-10 20:38 | Emergency Department Report ---
ED Chest Pain HPI - General Chief Complaint: Chest Pain Stated Complaint: SOB/CHEST PAIN/HBP/INSOMNIA Time Seen by Provider: 01/10/17 20:07 Source: patient Mode of arrival: Ambulatory Limitations: No Limitations - History of Present Illness Initial Comments: This is a 36-year-old female who was dropped off to be seen today with a complaint of chest pain, shortness of breath and some nonspecific dizziness. The patient says that the discomfort is midsternal and does not radiate and it is reproducible to palpation. She denies any cough, back pain, fever, nausea, vomiting or diaphoresis. He says that the symptoms been going on for the past month but recently worsened over the past few days. The patient was here for the same set of symptoms a few weeks ago and was diagnosed with costochondritis and discharged home with hydrocodone, Fioricet, and the patient says that she's been taking these medications as well as some Advil and intermittent ice/heat without much relief. The pain seems to worsen with respirations. No recent travel or sick contacts at home. She does not have a primary care doctor. She denies tobacco or illicit drug use or abuse. She has a past medical history of fibromyalgia, renal it's, seizures and has a surgical history of 2 and tubal ligation. - Related Data Home Medications Medication Instructions Recorded Confirmed Last Taken Dilantin 300 mg PO HS 03/29/16 12/03/16 03/28/16 Keppra TAB 500 mg PO BID 03/29/16 12/03/16 03/28/16 Previous Rx's Medication Instructions Recorded Last Taken Type Butalb/Acetamin/Caff 50-325-40 2 tab PO Q4H PRN #60 tablet 12/06/16 Unknown Rx [Fioricet] Dexamethasone [Decadron] 2 mg PO BID #10 tablet 12/06/16 Unknown Rx HYDROcodone/APAP 5-325 [[place] 1 each PO Q6H PRN #30 tablet 12/06/16 Unknown Rx 5-325 mg TAB] amLODIPine [Norvasc] 5 mg PO QDAY #30 tablet 12/06/16 Unknown Rx Allergies Allergy/AdvReac Type Severity Reaction Status Date / Time latex Allergy Rash Verified 07/05/15 11:06 STEPHAN score - Stephan Score Age > 65: (0) No Aspirin use within the Past 7 Days: (0) No 3 or more CAD Risk Factors: (0) No 2 or more Angina events in past 24 hrs: (1) Yes Known CAD with more than 50% Stenosis: (0) No Elevated Cardiac Markers: (0) No ST Deviation Greater than 0.5mm: (0) No STEPHAN Score: 1 ED Review of Systems ROS: Stated complaint: SOB/CHEST PAIN/HBP/INSOMNIA Other details as noted in HPI Comment: All other systems reviewed and negative Constitutional: denies: chills, fever Eyes: denies: eye pain, eye discharge, vision change ENT: denies: ear pain, throat pain Respiratory: shortness of breath. denies: cough Cardiovascular: chest pain. denies: edema Gastrointestinal: denies: abdominal pain, nausea, diarrhea Genitourinary: denies: urgency, dysuria, discharge Musculoskeletal: denies: back pain, arthralgia Skin: denies: rash, lesions Neurological: other (dizzy). denies: headache, weakness, paresthesias ED Past Medical Hx - Past Medical History Previous Medical History?: Yes Hx Hypertension: Yes Hx Seizures: Yes Additional medical history: Fibromyalgia. Raynauds. Costocondritis - Surgical History Past Surgical History?: Yes Additional Surgical History: C section x2. tubal ligation - Social History Smoking Status: Never Smoker Substance Use Type: None - Medications Home Medications: Home Medications Medication Instructions Recorded Confirmed Last Taken Type Dilantin 300 mg PO HS 03/29/16 12/03/16 03/28/16 History Keppra TAB 500 mg PO BID 03/29/16 12/03/16 03/28/16 History Butalb/Acetamin/Caff 50-325-40 2 tab PO Q4H PRN #60 tablet 12/06/16 Unknown Rx [Fioricet] Dexamethasone [Decadron] 2 mg PO BID #10 tablet 12/06/16 Unknown Rx HYDROcodone/APAP 5-325 [[place] 1 each PO Q6H PRN #30 tablet 12/06/16 Unknown Rx 5-325 mg TAB] amLODIPine [Norvasc] 5 mg PO QDAY #30 tablet 12/06/16 Unknown Rx ED Physical Exam - General Limitations: No Limitations - Other Other exam information: GENERAL: The patient is well-developed well-nourished. HEENT: Normocephalic. Atraumatic. Extraocular motions are intact. Patient has moist mucous membranes. Pupils equal reactive to light bilaterally. NECK: Supple. Trachea is midline. CHEST/LUNGS: Clear to auscultation. There is no respiratory distress noted. Patient's chest pain is reproducible to palpation to the chest wall. HEART/CARDIOVASCULAR: Regular. There is no tachycardia. There is no gallop rub or murmur. ABDOMEN: Abdomen is soft, nontender. Patient has normal bowel sounds. There is no abdominal distention. SKIN: Skin is warm and dry. No edema. NEURO: The patient is awake, alert, and oriented. The patient is cooperative. The patient has no focal neurologic deficits. The patient has normal speech. MUSCULOSKELETAL: There is no tenderness or deformity. There is no limitation range of motion. There is no evidence of acute injury. Cap refill less than 2 seconds. Radial pulses +2 over 4 bilaterally. ED Course Vital Signs 01/10/17 14:39 Temperature 98.1 F Pulse Rate 95 H Respiratory 20 Rate Blood Pressure 127/89 O2 Sat by Pulse 100 Oximetry ED Medical Decision Making - Lab Data Result diagrams: 01/10/17 15:30 01/10/17 15:30 - EKG Data -: EKG Interpreted by Me EKG shows normal: sinus rhythm, axis, intervals, QRS complexes, ST-T waves Rate: normal - EKG Data When compared to previous EKG there are: previous EKG unavailable Interpretation: normal EKG - Radiology Data Radiology results: image reviewed interpreted by me: Chest x-ray did not show any acute process. Heart is normal shape and size. No effusions. No pneumothorax. No signs of pneumonia seen. - Medical Decision Making 36-year-old female presents the emergency department with acute on chronic generalized chest discomfort. The heart and lungs are normal to auscultation. Chest pain is reproducible palpation of chest wall. Patient's labs show negative troponins 3 and a negative d-dimer. EKG is normal without ST elevation MA, ischemia or dysrhythmia. Chest x-ray does not show any acute process. Patient was given some anti-inflammatory's and pain medication and upon reevaluation she is feeling better. Vital signs stable throughout her ED course. She has a STEPHAN score of 0-1. She is low on the heart score. Patient appears safe for discharge home at this time. Patient had a negative stress test last month. She'll be given a referral for that pathology technologist as well as referral to primary care. She will return to the ER with any worsening of her symptoms or any acute distress. - Differential Diagnosis MA, costochondritis, PE, fibromyalgia Critical Care Time: No Critical care attestation.: If time is entered above; I have spent that time in minutes in the direct care of this critically ill patient, excluding procedure time. ED Disposition Clinical Impression: Chest pain Qualifiers: Chest pain type: unspecified Qualified Code(s): R07.9 - Chest pain, unspecified Disposition: DISCHARGED TO HOME OR SELFCARE Is pt being admited?: No Condition: Stable Instructions: Chest Pain (ED), Costochondritis (ED) Additional Instructions: Please follow-up with primary care and cardiology. Return to the emergency department with any worsening of your symptoms or any acute distress. Referrals: PRIMARY MD JOSE CRUZ [Primary Care Provider] - 3-5 Days LUCIANA ALVARES MD [Staff Physician] - 3-5 Days WAN LIRIANO MD [Staff Physician] - 3-5 Days [facility] [Outside] - 3-5 Days Time of Disposition: 00:37
[2017-01-10] MEDS ORDERED: MORPHINE ONE (23:20)
[2017-01-10] MEDS ORDERED: TORADOL ONE (23:20)
[2017-01-11 01:27] VITALS: BP 128/77
--- NOTE | 2017-01-11 10:51 | XRay Report ---
Single view chest: Compared to 12/03/16. History: Chest pain. Findings: Normal cardiomediastinal silhouette. Trachea is midline. No consolidation, pneumothorax or pleural effusion. Impression: No acute cardiopulmonary findings.
== END 2017-01-11 01:24 | disposition home or self-care (01) ==
LOC: ED 14:30
DX: R07.9 Chest pain, unspecified (principal); I10 Essential (primary) hypertension; Z91.040 Latex allergy status
CPT/HCPCS: 36415; 71020; 80048; 84484; 85025; 85379; 93005; 93010; 96361; 96374; 96375; 99285; J1885; J2270; J7030

== ENCOUNTER 2018-02-08 17:36 | Emergency (ER) | payer SELFPAY ==
[2018-02-08 17:50] VITALS: BP 154/97
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
[2018-02-08] MEDS ORDERED: ULTRAM PO ONE (21:38)
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
[2018-02-09] MEDS ORDERED: THERMAZENE 50 GRAM TP ONE (00:33)
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
== END 2018-02-09 00:45 | disposition home or self-care (01) ==
LOC: ED 17:36
DX: T22.111A Burn of first degree of right forearm, initial encounter (principal); S16.1XXA Strain of muscle, fascia and tendon at neck level, initial encounter; R51 Headache; I10 Essential (primary) hypertension; Z91.040 Latex allergy status; V89.2XXA Person injured in unspecified motor-vehicle accident, traffic, initial encounter; Y93.89 Activity, other specified; Y92.89 Other specified places as the place of occurrence of the external cause; Y99.8 Other external cause status
CPT/HCPCS: 72040; 99284

== ENCOUNTER 2018-06-29 01:25 | Emergency (ER) | payer SELFPAY ==
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
[2018-06-29 02:51] LABS: Basophils # (Auto) 0.1 K/mm3 (0.0-0.1); Basophils % (Auto) 0.9 % (0.0-1.8); Eosinophils # (Auto) 0.1 K/mm3 (0.0-0.4); Eosinophils % (Auto) 1.2 % (0.0-4.3); Hematocrit 38.3 % (30.3-42.9); Hemoglobin 13.3 gm/dl (10.1-14.3); Lymphocytes # (Auto) 2.6 K/mm3 (1.2-5.4); Mean Corpuscular HGB Conc 35 % (30-34); Mean Corpuscular Hemoglobin 31 pg (28-32); Mean Corpuscular Volume 89 fl (79-97); Monocytes # (Auto) 0.7 K/mm3 (0.0-0.8); Monocytes % (Auto) 9.1 % (0.0-7.3); Platelet Count 203 K/mm3 (140-440); Red Blood Count 4.33 M/mm3 (3.65-5.03); Red Cell Distribution Width 13.2 % (13.2-15.2)
[2018-06-29 03:06] LABS: BUN/Creatinine Ratio 26; Blood Urea Nitrogen 18 mg/dL (7-17); Hemolysis Index 1
--- NOTE | 2018-06-29 03:41 | Cat Scan Report ---
FINAL REPORT EXAM: CT HEAD/BRAIN WO CON HISTORY: seizure, R tingling TECHNIQUE: Routine axial imaging was obtained of the brain without IV contrast. Comparison is made to the study of 12/03/2016. FINDINGS: The ventricular system is appropriate in size and is symmetric. There is no evidence of acute stroke or hemorrhage. The visualized sinuses are clear. The mastoid air cells are well pneumatized. The calvarium appears intact. IMPRESSION: Within normal limits.
[2018-06-29] MEDS ORDERED: DILANTIN 1,000 MG in NACL 0.9% 250ML 250 ML IV ONE (05:20)
[2018-06-29] MEDS ORDERED: NACL 0.9% 500 ML 500 ML ONE (06:03)
[2018-06-29] MEDS ORDERED: NACL 0.9% 500 ML 500 ML IV ONE (06:05)
[2018-06-29 06:08] VITALS: BP 130/85
[2018-06-29] MEDS ORDERED: ANTIVERT PO ONE (06:31)
== END 2018-06-29 07:09 | disposition home or self-care (01) ==
LOC: ED 01:25
DX: R56.9 Unspecified convulsions (principal); R42 Dizziness and giddiness; I10 Essential (primary) hypertension; M79.7 Fibromyalgia; Z91.040 Latex allergy status; Z86.73 Personal history of transient ischemic attack (TIA), and cerebral infarction without residual deficits; Z98.51 Tubal ligation status
CPT/HCPCS: 36415; 70450; 80048; 80185; 84703; 85025; 96361; 96365; 99284; J1165; J7040; J7050

== ENCOUNTER 2019-05-25 17:03 | Emergency (ER) | payer SELFPAY ==
--- NOTE | 2019-05-25 17:18 | Event Note ---
ED Screening Note Date of service: 05/25/19 Time: 17:14 ED Screening Note: This is a 38 y.o. F. that presents to the ER with numbness and tingling to RLE. Patient denies injury, recent travel. PMH of HTN, seizures, CVA Reports swelling to right lateral ankle. This initial assessment/diagnostic orders/clinical plan/treatment(s) is/are subject to change based on patients health status, clinical progression and re- assessment by fellow clinical providers in the ED. Further treatment and workup at subsequent clinical providers discretion. Patient/guardian urged not to elope from the ED as their condition may be serious if not clinically assessed and managed. Initial orders include: XR of right ankle
--- NOTE | 2019-05-25 18:00 | XRay Report ---
RIGHT ANKLE 3 VIEWS INDICATION: swelling to lateral ankle. COMPARISON: No relevant prior imaging study available. FINDINGS: No acute, displaced fracture or dislocation is seen. There is mild calcaneal enthesopathy at the dist al Achilles attachment. There is no ankle mortise widening. No significant degenerative changes. Ther e is mild soft tissue swelling along the anterior ankle. IMPRESSION: 1. No significant skeletal abnormality. 2. Mild soft tissue swelling anteriorly. Signer Name: Lucas Baugh MD Signed: 05/25/2019 5:56 PM Workstation Name: [id number]
[2019-05-25] MEDS ORDERED: DELTASONE PO ONE (19:43)
[2019-05-25] MEDS ORDERED: IBUPROFEN PO ONE (19:43)
--- NOTE | 2019-05-25 20:17 | Emergency Department Report ---
ED General Adult HPI - General Chief complaint: Extremity Problem,Nontraumatic Stated complaint: RT FOOT/RT LEG NUMB Time Seen by Provider: 05/25/19 17:13 Source: patient Mode of arrival: Ambulatory Limitations: No Limitations - History of Present Illness Initial comments: Patient is a 38-year-old white female with a history of seizures who presents to the ED with a complaint of acute onset was his second severe nontraumatic right ankle pain and swelling for the last 6 days. Patient states that in the last 4 days she has not been able to bear weight on the right ankle because of pain. Patient states that she has been elevating the right ankle with no relief. 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 Patient denies fever, chills, nausea, vomiting, traumatic injury, twisting injury, heavy lifting, fall, numbness and tingling right ankle foot. MD Complaint: RIGHT ANKLE PAIN; SWOLLEN RIGHT ANKLE -: Sudden, days(s) (6) Location: right, lower extremity (RIGHT ANKLE) Radiation: extremity (right ankle) Severity scale (0 -10): 10 Quality: aching, sharp, constant Consistency: constant Improves with: none Worsens with: movement Associated Symptoms: denies other symptoms. denies: confusion, chest pain, cough, diaphoresis, fever/chills, headaches, loss of appetite, shortness of breath, syncope, weakness Treatments Prior to Arrival: NSAID - Related Data Home Medications Medication Instructions Recorded Confirmed Last Taken Dilantin 300 mg PO HS 03/29/16 12/03/16 03/28/16 Keppra TAB 500 mg PO BID 03/29/16 12/03/16 03/28/16 Previous Rx's Medication Instructions Recorded Last Taken Type Butalb/Acetamin/Caff 50-325-40 2 tab PO Q4H PRN #60 tablet 12/06/16 Unknown Rx [Fioricet 50-325-40] HYDROcodone/APAP 5-325 [[place] 1 each PO Q6H PRN #30 tablet 12/06/16 Unknown Rx 5-325 mg TAB] amLODIPine [Norvasc] 5 mg PO QDAY #30 tablet 12/06/16 Unknown Rx dexAMETHasone [Decadron] 2 mg PO BID #10 tablet 12/06/16 Unknown Rx Cyclobenzaprine HCl [Flexeril 5 MG 5 mg PO TID PRN #15 tab 02/09/18 Unknown Rx TAB] Naproxen [Naprosyn TAB] 500 mg PO BID PRN #20 tablet 02/09/18 Unknown Rx SILVER sulfADIAZINE 50 GRAM 1 applicatio TP BID #1 tube 02/09/18 Unknown Rx [Thermazene 50 Gram] Meclizine [Antivert] 25 mg PO TID PRN #20 tablet 06/29/18 Unknown Rx Phenytoin Sodium Extended 100 mg PO TID #100 capsule 06/29/18 Unknown Rx [Dilantin] Acetaminophen/Codeine [Tylenol 1 tab PO Q6H PRN #15 tab 05/25/19 Unknown Rx /Codeine # 3 tab] Naproxen [Naprosyn] 500 mg PO Q12H PRN #20 tablet 05/25/19 Unknown Rx predniSONE [Deltasone] 40 mg PO QDAY #12 tab 05/25/19 Unknown Rx Allergies Allergy/AdvReac Type Severity Reaction Status Date / Time latex Allergy Rash Verified 07/05/15 11:06 ED Review of Systems ROS: Stated complaint: RT FOOT/RT LEG NUMB Other details as noted in HPI Constitutional: denies: chills, fever Eyes: denies: eye pain, eye discharge, vision change ENT: denies: ear pain, throat pain Respiratory: denies: cough, shortness of breath, wheezing Cardiovascular: denies: chest pain, palpitations Endocrine: no symptoms reported Gastrointestinal: denies: abdominal pain, nausea, diarrhea Genitourinary: denies: urgency, dysuria, discharge Musculoskeletal: joint swelling (right ankle), arthralgia (right ankle). denies: back pain Skin: denies: rash, lesions Neurological: denies: headache, weakness, paresthesias Psychiatric: denies: anxiety, depression Hematological/Lymphatic: denies: easy bleeding, easy bruising ED Past Medical Hx - Past Medical History Previous Medical History?: Yes Hx Hypertension: Yes Hx CVA: Yes Hx Seizures: Yes Additional medical history: Fibromyalgia. Raynauds. Costocondritis - Surgical History Past Surgical History?: Yes Additional Surgical History: C section x2. tubal ligation - Social History Smoking Status: Never Smoker Substance Use Type: None - Medications Home Medications: Home Medications Medication Instructions Recorded Confirmed Last Taken Type Dilantin 300 mg PO HS 03/29/16 12/03/16 03/28/16 History Keppra TAB 500 mg PO BID 03/29/16 12/03/16 03/28/16 History Butalb/Acetamin/Caff 50-325-40 2 tab PO Q4H PRN #60 tablet 12/06/16 Unknown Rx [Fioricet 50-325-40] HYDROcodone/APAP 5-325 [[place] 1 each PO Q6H PRN #30 tablet 12/06/16 Unknown Rx 5-325 mg TAB] amLODIPine [Norvasc] 5 mg PO QDAY #30 tablet 12/06/16 Unknown Rx dexAMETHasone [Decadron] 2 mg PO BID #10 tablet 12/06/16 Unknown Rx Cyclobenzaprine HCl [Flexeril 5 MG 5 mg PO TID PRN #15 tab 02/09/18 Unknown Rx TAB] Naproxen [Naprosyn TAB] 500 mg PO BID PRN #20 tablet 02/09/18 Unknown Rx SILVER sulfADIAZINE 50 GRAM 1 applicatio TP BID #1 tube 02/09/18 Unknown Rx [Thermazene 50 Gram] Meclizine [Antivert] 25 mg PO TID PRN #20 tablet 06/29/18 Unknown Rx Phenytoin Sodium Extended 100 mg PO TID #100 capsule 06/29/18 Unknown Rx [Dilantin] Acetaminophen/Codeine [Tylenol 1 tab PO Q6H PRN #15 tab 05/25/19 Unknown Rx /Codeine # 3 tab] Naproxen [Naprosyn] 500 mg PO Q12H PRN #20 tablet 05/25/19 Unknown Rx predniSONE [Deltasone] 40 mg PO QDAY #12 tab 05/25/19 Unknown Rx ED Physical Exam - General Limitations: No Limitations General appearance: alert, in no apparent distress - Head Head exam: Present: atraumatic, normocephalic, normal inspection - Eye Eye exam: Present: normal appearance, PERRL, EOMI. Absent: scleral icterus, conjunctival injection, nystagmus, periorbital swelling, periorbital tenderness, other Pupils: Present: normal accommodation - ENT ENT exam: Present: normal exam, normal orophraynx, mucous membranes moist, TM's normal bilaterally, normal external ear exam - Neck Neck exam: Present: normal inspection, full ROM - Respiratory Respiratory exam: Present: normal lung sounds bilaterally. Absent: respiratory distress, wheezes, rales, rhonchi, chest wall tenderness, accessory muscle use, prolonged expiratory - Cardiovascular Cardiovascular Exam: Present: regular rate, normal rhythm, normal heart sounds. Absent: systolic murmur, diastolic murmur, rubs, gallop - GI/Abdominal GI/Abdominal exam: Present: soft, normal bowel sounds. Absent: tenderness, guarding, rebound, hyperactive bowel sounds, hypoactive bowel sounds, organ omegaly, bruit, pulsatile mass - Rectal Rectal exam: Present: deferred - Extremities Exam Extremities exam: Present: normal inspection, tenderness (right ankle tenderness and moderate swelling), normal capillary refill - Back Exam Back exam: Present: normal inspection, full ROM. Absent: tenderness, CVA tenderness (R), muscle spasm, paraspinal tenderness - Neurological Exam Neurological exam: Present: alert, oriented X3, CN II-XII intact, normal gait, reflexes normal - Psychiatric Psychiatric exam: Present: normal affect, normal mood - Skin Skin exam: Present: warm, dry, intact, normal color. Absent: rash ED Course Vital Signs 05/25/19 20:02 Respiratory 15 Rate - Reevaluation(s) Reevaluation #1: 05/25/19 20:25 This is a 38-year-old white female with a history of seizures who presented to the ED with complaint of acute onset mental Patrick cracked" pain and swelling. 6 days. In the ED, patient is alert and oriented 3 and is not in distress. Patient was to for pain in the ED and the right ankle was splinted with an Yordan wrap. Right ankle x-ray shows no acute fractures or subluxation but is soft tissue swelling. Patient was discharged home on pain medications and advised follow-up with a primary care physician in 7-10 days for reevaluation or return to the ED immediately if symptoms get worse. ED Medical Decision Making - Radiology Data Radiology results: report reviewed, image reviewed Right ankle x-ray shows no acute fractures or subluxations. There is anterior soft tissue swelling around the ankle joint. - Medical Decision Making This is a 38-year-old white female with a history of seizures who presented to the ED with complaint of acute onset mental Patrick cracked" pain and swelling. 6 days. In the ED, patient is alert and oriented 3 and is not in distress. Patient was to for pain in the ED and the right ankle was splinted with an Yordan wrap. Right ankle x-ray shows no acute fractures or subluxation but is soft tissue swelling. Patient was discharged home on pain medications and advised follow-up with a primary care physician in 7-10 days for reevaluation or return to the ED immediately if symptoms get worse. - Differential Diagnosis right ankle tendinitis; right ankle sprain; right ankle muscle strain Critical care attestation.: If time is entered above; I have spent that time in minutes in the direct care of this critically ill patient, excluding procedure time. ED Disposition Clinical Impression: Tendinitis of right ankle Muscle strain of right ankle Qualifiers: Encounter type: initial encounter Qualified Code(s): S96.911A - Strain of unspecified muscle and tendon at ankle and foot level, right foot, initial encounter Disposition: TO HOME OR SELFCARE Is pt being admited?: No Does the pt Need Aspirin: No Condition: Stable Additional Instructions: Take medication with food, drink plenty of fluids and follow-up with your primary care physician in 7-10 days for reevaluation. Return to the ED immediately if symptoms get worse. Prescriptions: predniSONE [Deltasone] 40 mg PO QDAY #12 tab Naproxen [Naprosyn] 500 mg PO Q12H PRN #20 tablet PRN Reason: Pain , Severe (7-10) Acetaminophen/Codeine [Tylenol /Codeine # 3 tab] 1 tab PO Q6H PRN #15 tab PRN Reason: Pain , Severe (7-10) Referrals: [facility] [Outside] - 3-5 Days Forms: Work/School Release Form(ED) Time of Disposition: 20:14 Print Language: BURKINAN
[2019-05-25 21:44] VITALS: BP 114/96
== END 2019-05-25 20:30 | disposition home or self-care (01) ==
LOC: ED 17:03
DX: S96.911A Strain of unspecified muscle and tendon at ankle and foot level, right foot, initial encounter (principal); M77.9 Enthesopathy, unspecified; I10 Essential (primary) hypertension; Z86.73 Personal history of transient ischemic attack (TIA), and cerebral infarction without residual deficits; Z98.51 Tubal ligation status; Z91.040 Latex allergy status; X58.XXXA Exposure to other specified factors, initial encounter; Y93.89 Activity, other specified; Y92.89 Other specified places as the place of occurrence of the external cause; Y99.8 Other external cause status
CPT/HCPCS: 73610; 99283; J7512

== ENCOUNTER 2019-09-06 00:12 | Emergency (ER) | payer SELFPAY ==
--- NOTE | 2019-09-06 01:34 | XRay Report ---
CHEST 2 VIEWS, 09/06/2019 1:08 AM INDICATION: Shortness of breath COMPARISON: Chest radiograph, 01/10/2017 FINDINGS: Support devices: None Heart: Heart size and pulmonary vascularity appear within normal limits. Lungs/pleura: There is no focal airspace disease or significant pleural effusion Additional findings: Evaluation of bony structures demonstrate no evidence of acute bony abnormality. IMPRESSION: 1. No evidence of acute cardiopulmonary process. Signer Name: Vanessa Butts MD Signed: 09/06/2019 1:30 AM Workstation Name: [id number]
[2019-09-06] MEDS ORDERED: IBUPROFEN 800 MG TAB PO ONE (03:39)
--- NOTE | 2019-09-06 04:43 | Emergency Department Report ---
ED General Adult HPI - General Chief complaint: Dyspnea/Respdistress Stated complaint: JOSE MIGUEL HEADACHE Time Seen by Provider: 09/06/19 03:37 Source: patient Mode of arrival: Ambulatory Limitations: No Limitations - History of Present Illness Initial comments: Ms Lopez is a 39 y/o w/f who frequents multipe facilities for cough, headache, and chest wall pain for past 3 yrs, who presents to ed for chest wall pain, head and nonspecific jose miguel, states chest wall pain with deep inspiration pt denies wheezing, no stridor no n/v , no substernal chest pain, no numbness, no n/v pt states she has not had bp meds in 1 yr. vital signs noted normal today. Ms Lopez has had several ed visits to this ed with similar symptoms with ultimate seconday gain for pain medication as she admits to me at this time, Onset/Timin -: year(s) Location: chest (chest wall right lateral ) Severity scale (0 -10): 7 Quality: sharp Consistency: intermittent Improves with: none Worsens with: none Associated Symptoms: chest pain (chest wall pain ). denies: confusion, cough, diaphoresis, fever/chills, headaches, loss of appetite, malaise, nausea/vomit ing, rash, seizure, shortness of breath, syncope, weakness - Related Data Home Medications Medication Instructions Recorded Confirmed Last Taken Dilantin 300 mg PO HS 03/29/16 12/03/16 03/28/16 Keppra TAB 500 mg PO BID 03/29/16 12/03/16 03/28/16 Previous Rx's Medication Instructions Recorded Last Taken Type Butalb/Acetamin/Caff 50-325-40 2 tab PO Q4H PRN #60 tablet 12/06/16 Unknown Rx [Fioricet 50-325-40] HYDROcodone/APAP 5-325 [[place] 1 each PO Q6H PRN #30 tablet 12/06/16 Unknown Rx 5-325 mg TAB] amLODIPine 5 mg PO QDAY #30 tablet 12/06/16 Unknown Rx dexAMETHasone [Decadron] 2 mg PO BID #10 tablet 12/06/16 Unknown Rx Cyclobenzaprine HCl [Flexeril 5 MG 5 mg PO TID PRN #15 tab 02/09/18 Unknown Rx TAB] Naproxen [Naprosyn TAB] 500 mg PO BID PRN #20 tablet 02/09/18 Unknown Rx SILVER sulfADIAZINE 50 GRAM 1 applicatio TP BID #1 tube 02/09/18 Unknown Rx [Thermazene 50 Gram] Meclizine [Antivert] 25 mg PO TID PRN #20 tablet 06/29/18 Unknown Rx Phenytoin Sodium Extended 100 mg PO TID #100 capsule 06/29/18 Unknown Rx [Dilantin] Acetaminophen/Codeine [Tylenol 1 tab PO Q6H PRN #15 tab 05/25/19 Unknown Rx /Codeine # 3 tab] Naproxen [Naprosyn] 500 mg PO Q12H PRN #20 tablet 05/25/19 Unknown Rx predniSONE [Deltasone] 40 mg PO QDAY #12 tab 05/25/19 Unknown Rx Naproxen 500 mg PO BID PRN #30 tablet 09/06/19 Unknown Rx Allergies Allergy/AdvReac Type Severity Reaction Status Date / Time latex Allergy Rash Verified 09/06/19 00:51 ED Review of Systems ROS: Stated complaint: JOSE MIGUEL HEADACHE Other details as noted in HPI Constitutional: denies: chills, fever Eyes: denies: eye pain, eye discharge, vision change ENT: denies: ear pain, throat pain Respiratory: denies: cough, shortness of breath, wheezing Cardiovascular: chest pain (chest wall pain right lateral chest wall ). denies: palpitations, dyspnea on exertion, orthopnea Endocrine: no symptoms reported Gastrointestinal: denies: abdominal pain, nausea, diarrhea Genitourinary: denies: urgency, dysuria, discharge Musculoskeletal: denies: back pain, joint swelling, arthralgia Skin: denies: rash, lesions Neurological: denies: headache, weakness, paresthesias Psychiatric: as per HPI Hematological/Lymphatic: denies: easy bleeding, easy bruising ED Past Medical Hx - Past Medical History Hx Hypertension: Yes Hx CVA: Yes Hx Seizures: Yes Additional medical history: Fibromyalgia. Raynauds. Costocondritis - Surgical History Additional Surgical History: C section x2. tubal ligation - Social History Smoking Status: Never Smoker Substance Use Type: None - Medications Home Medications: Home Medications Medication Instructions Recorded Confirmed Last Taken Type Dilantin 300 mg PO HS 03/29/16 12/03/16 03/28/16 History Keppra TAB 500 mg PO BID 03/29/16 12/03/16 03/28/16 History Butalb/Acetamin/Caff 50-325-40 2 tab PO Q4H PRN #60 tablet 12/06/16 Unknown Rx [Fioricet 50-325-40] HYDROcodone/APAP 5-325 [[place] 1 each PO Q6H PRN #30 tablet 12/06/16 Unknown Rx 5-325 mg TAB] amLODIPine 5 mg PO QDAY #30 tablet 12/06/16 Unknown Rx dexAMETHasone [Decadron] 2 mg PO BID #10 tablet 12/06/16 Unknown Rx Cyclobenzaprine HCl [Flexeril 5 MG 5 mg PO TID PRN #15 tab 02/09/18 Unknown Rx TAB] Naproxen [Naprosyn TAB] 500 mg PO BID PRN #20 tablet 02/09/18 Unknown Rx SILVER sulfADIAZINE 50 GRAM 1 applicatio TP BID #1 tube 02/09/18 Unknown Rx [Thermazene 50 Gram] Meclizine [Antivert] 25 mg PO TID PRN #20 tablet 06/29/18 Unknown Rx Phenytoin Sodium Extended 100 mg PO TID #100 capsule 06/29/18 Unknown Rx [Dilantin] Acetaminophen/Codeine [Tylenol 1 tab PO Q6H PRN #15 tab 05/25/19 Unknown Rx /Codeine # 3 tab] Naproxen [Naprosyn] 500 mg PO Q12H PRN #20 tablet 05/25/19 Unknown Rx predniSONE [Deltasone] 40 mg PO QDAY #12 tab 05/25/19 Unknown Rx Naproxen 500 mg PO BID PRN #30 tablet 09/06/19 Unknown Rx ED Physical Exam - General Limitations: No Limitations General appearance: alert, in no apparent distress - Head Head exam: Present: atraumatic, normocephalic - Eye Eye exam: Present: normal appearance, PERRL, EOMI Pupils: Present: normal accommodation - ENT ENT exam: Present: normal orophraynx, mucous membranes moist, TM's normal bilaterally, normal external ear exam - Neck Neck exam: Present: normal inspection, full ROM. Absent: tenderness, lymphadenopathy, thyromegaly - Respiratory Respiratory exam: Present: normal lung sounds bilaterally. Absent: respiratory distress, wheezes, rales, rhonchi, stridor, chest wall tenderness - Cardiovascular Cardiovascular Exam: Present: regular rate, normal rhythm, normal heart sounds. Absent: systolic murmur, diastolic murmur, rubs, gallop - GI/Abdominal GI/Abdominal exam: Present: soft, normal bowel sounds. Absent: distended, tenderness, bruit, hernia - Rectal Rectal exam: Present: deferred - Extremities Exam Extremities exam: Present: normal inspection - Back Exam Back exam: Present: normal inspection, full ROM. Absent: tenderness, CVA tenderness (R), CVA tenderness (L), rash noted - Neurological Exam Neurological exam: Present: alert, oriented X3, CN II-XII intact, normal gait, reflexes normal. Absent: motor sensory deficit - Psychiatric Psychiatric exam: Present: normal affect, normal mood - Skin Skin exam: Present: warm, dry, intact, normal color, rash ED Course Vital Signs 09/06/19 09/06/19 00:31 03:50 Temperature 98.9 F Pulse Rate 87 Respiratory 18 18 Rate Blood Pressure 151/88 O2 Sat by Pulse 99 Oximetry ED Medical Decision Making - Radiology Data Radiology results: report reviewed, image reviewed Findings [address] [address] XRay Report Signed Patient: SHANAE LOPEZ MR#: [id number] : 1980 Acct:[id number] Age/Sex: 39 / F ADM Date: 09/06/19 Loc: ED Attending Dr: Ordering Physician: VERONICA GALICIA MD Date of Service: 09/06/19 Procedure(s): XR chest routine 2V Accession Number(s): [id number] cc: ED MD FRIDA Fluoro Time In Minutes: CHEST 2 VIEWS, 09/06/2019 1:08 AM INDICATION: Shortness of breath COMPARISON: Chest radiograph, 01/10/2017 FINDINGS: Support devices: None Heart: Heart size and pulmonary vascularity appear within normal limits. Lungs/pleura: There is no focal airspace disease or significant pleural effusion Additional findings: Evaluation of bony structures demonstrate no evidence of acute bony abnormality. IMPRESSION: 1. No evidence of acute cardiopulmonary process. Signer Name: Vanessa Butts MD Signed: 09/06/2019 1:30 AM Workstation Name: [id number] Transcribed By: EB Dictated By: Vanessa Butts MD Electronically Authenticated By: Vanessa Butts MD Signed Date/Time: 09/06/19129 DD/ 8 TD/TT: - Medical Decision Making Ms Lopez is a 39 y/o w/f who frequents multipe facilities for cough, headache, and chest wall pain for past 3 yrs, who presents to ed for chest wall pain, head and nonspecific jose miguel, states chest wall pain with deep inspiration pt denies wheezing, no stridor no n/v , no substernal chest pain, no numbness, no n/v, all vital signs are normal, resp even nonlabered, at 18 resp per minute. pt with nad , appears well nontoxic. Critical care attestation.: If time is entered above; I have spent that time in minutes in the direct care of this critically ill patient, excluding procedure time. ED Disposition Clinical Impression: Chest wall pain Disposition: DC-01 TO HOME OR SELFCARE Is pt being admited?: No Does the pt Need Aspirin: No Condition: Stable Instructions: Costochondritis (ED) Prescriptions: Naproxen 500 mg PO BID PRN #30 tablet PRN Reason: chest wall pain Referrals: [facility] [Outside] - 3-5 Days Forms: Work/School Release Form(ED) Time of Disposition: 04:53
[2019-09-06 05:09] VITALS: BP 127/87
== END 2019-09-06 05:00 | disposition home or self-care (01) ==
LOC: ED 00:12
DX: R07.89 Other chest pain (principal); R05 Cough; R51 Headache; I10 Essential (primary) hypertension; Z86.73 Personal history of transient ischemic attack (TIA), and cerebral infarction without residual deficits; Z98.51 Tubal ligation status; Z79.899 Other long term (current) drug therapy; Z91.040 Latex allergy status
CPT/HCPCS: 71046